=== PATIENT | male | born 1975 | race Caucasian/White ===

== ENCOUNTER 2017-07-29 09:08 | Inpatient (IN) | END 2017-08-02 14:00 | disposition home or self-care (01) | DRG 355 ==

== ENCOUNTER 2017-08-05 13:43 | Inpatient (IN) | END 2017-08-07 12:00 | disposition home or self-care (01) | DRG 921 ==

== ENCOUNTER 2018-02-15 16:20 | Inpatient (IN) | END 2018-02-17 13:00 | disposition home or self-care (01) | DRG 940 ==